=== PATIENT | male | born 1955 | race Caucasian/White ===

== ENCOUNTER 2024-03-05 09:03 | Outpatient (CLI) | payer MEDICARE | END 2024-03-05 09:04 | disposition home or self-care (01) | LOC: CT 09:03 | PROVIDERS: ATTEND Urology | DX: N28.9 Disorder of kidney and ureter, unspecified (principal) | CPT/HCPCS: 74176 ==

== ENCOUNTER 2024-10-29 08:08 | Outpatient (CLI) | payer OTHER | END 2024-10-29 08:09 | disposition home or self-care (01) | LOC: CT 08:08 | PROVIDERS: ATTEND Urology | DX: C61 Malignant neoplasm of prostate (principal); K85.20 Alcohol induced acute pancreatitis without necrosis or infection; R91.1 Solitary pulmonary nodule; J44.9 Chronic obstructive pulmonary disease, unspecified; K57.30 Diverticulosis of large intestine without perforation or abscess without bleeding; I25.10 Atherosclerotic heart disease of native coronary artery without angina pectoris | CPT/HCPCS: 71250; 74176 ==

== ENCOUNTER 2024-12-09 10:22 | Outpatient (CLI) | payer OTHER ==
[2024-12-09 11:57] LABS: #Basophils Less than 0.03 10x3/uL (0.0-0.2); #Eosinophils 0.53 10x3/uL (0.0-0.7); #Monocytes 0.51 10x3/uL (0.11-0.59); #Neutrophils 3.65 10x3/uL (1.40-6.50); %Basophils 0.3 % (0.0-1.0); %Eosinophils 8.5 % (0.0-10.0); %Lymphocytes 24.4 % (21.0-51.0); %Monocytes 8.2 % (0.0-10.0); %Neutrophils 58.4 % (42.0-75.0); Hematocrit 29.8 % (42.0-52.0); Hemoglobin 9.6 g/dL (14.0-18.0); Mean Corpuscular Hemoglobin 29.9 pg (27.0-31.0); Mean Corpuscular Volume 92.8 fL (78.0-98.0); Platelet Count 213 10x3/uL (130-400); Red Blood Cell (RBC) Count 3.21 mill/uL (4.70-6.10); White Blood Cell (WBC) Count 6.24 10x3/uL (4.8-10.8)
[2024-12-09 12:01] LABS: Bacteria/HPF None Seen HPF (None Seen); Glucose, Urine (Dipstick) Normal (Negative); Leukocyte Negative Leu/uL (Negative); Protein, Urine (Dipstick) Negative (Neg-Trace); RBC/HPF 0-3 HPF (0-3); Specific Gravity, Urine 1.009 (1.002-1.036); WBC/HPF 0-3 HPF (0-3)
[2024-12-09 12:15] LABS: ALT (SGPT) 8 U/L (Less than 45); AST (SGOT) 13 U/L (11-34); Albumin 3.6 g/dL (3.1-4.5); Alkaline Phosphatase 81 U/L (40-110); Anion Gap 12 mmol/L (10-20); BUN (Urea Nitrogen) 34 mg/dL (8.4-25.7); Bilirubin, Total 0.3 mg/dL (0.3-1.2); Calc. Creatinine Clearance 0 mL/min (70-130); Calcium 8.6 mg/dL (7.8-10.44); Carbon Dioxide 23 mmol/L (23-31); Chloride 107 mmol/L (98-107); Globulin 2.7 g/dL (2.4-3.5); Glucose 107 mg/dL (80-115); Potassium 5.0 mmol/L (3.5-5.1); Sodium 137 mmol/L (136-145)
[2024-12-09 12:21] LABS: INR-International Normal Ratio 1.2; PTT 33.6 sec (22.9-36.1); Prothrombin Time 15.0 sec (12.0-14.7)
== END 2024-12-09 10:23 | disposition home or self-care (01) ==
LOC: LABBT 10:22
PROVIDERS: ATTEND Urology
DX: Z01.818 Encounter for other preprocedural examination (principal); C61 Malignant neoplasm of prostate
CPT/HCPCS: 71046; 80053; 81001; 85025; 85610; 85730; 86850; 86900; 86901; 87086; 93005; 93010

== ENCOUNTER 2024-12-22 06:00 | Inpatient (IN) | payer OTHER ==
[2024-12-22] MEDS ORDERED: Bupivacaine 0.25% HCL 30 ML VIAL ONE ×2 (06:46→10:13)
[2024-12-22] MEDS ORDERED: MINERAL OIL/WHITE PETROLATUM 3.5 GM TUBE ONE (06:54)
[2024-12-22] MEDS ORDERED: Rocuronium Bromide 10 MG/ML (10ML VIAL) ONE ×2 (06:54→09:55)
[2024-12-22] MEDS ORDERED: Ketamine In 0.9 % NaCl 50 MG/5 ML SYRINGE ONE (06:54)
[2024-12-22] MEDS ORDERED: PROPOFOL 20 ML ONE ×2 (06:54→11:27)
[2024-12-22] MEDS ORDERED: Albuterol HFA (OR) 200 PUFF INH ONE ×2 (06:55→07:28)
[2024-12-22] MEDS ORDERED: LevoFLOXacin D5W 500 mg (100 mL) BAG ONE (06:59)
[2024-12-22] MEDS ORDERED: Ondansetron PF 4 MG/2 ML Vial ONE (10:33)
[2024-12-22] MEDS ORDERED: SUGAMMADEX SODIUM 200 MG/2 ML VIAL ONE (10:33)
[2024-12-22] MEDS ORDERED: fentaNYL PF 100 MCG/2 ML SYRINGE ONE (11:27)
[2024-12-22] MEDS ORDERED: HYDROmorphone 2 MG/ML VIAL ONE (11:27)
[2024-12-22] MEDS ORDERED: Oxybutynin 5 MG TAB PO PRN (12:46)
[2024-12-22] MEDS ORDERED: Mag-Al 1200 mg/1200 mg/30 ML UDCUP PO PRN (12:46)
[2024-12-22] MEDS ORDERED: hydrALAZINE 20 MG/ML VIAL SLOW IVP PRN (12:46)
[2024-12-22] MEDS ORDERED: diphenhydrAMINE 50 MG/ML VIAL IVP PRN (12:46)
[2024-12-22] MEDS ORDERED: Acetaminophen 500 MG TAB PO PRN (12:46)
[2024-12-22] MEDS ORDERED: Ondansetron PF 4 MG/2 ML Vial IVP PRN (12:51)
[2024-12-22] MEDS ORDERED: Albuterol 200 PUFF (6.7GM INHALER) INH PRN (13:22)
[2024-12-22 13:24] LABS: #Basophils Less than 0.03 10x3/uL (0.0-0.2); #Eosinophils 0.07 10x3/uL (0.0-0.7); #Monocytes 0.23 10x3/uL (0.11-0.59); #Neutrophils 10.26 10x3/uL (1.40-6.50); %Basophils 0.2 % (0.0-1.0); %Eosinophils 0.6 % (0.0-10.0); %Lymphocytes 9.4 % (21.0-51.0); %Monocytes 2.0 % (0.0-10.0); %Neutrophils 87.4 % (42.0-75.0); Hematocrit 27.9 % (42.0-52.0); Hemoglobin 8.8 g/dL (14.0-18.0); Mean Corpuscular Hemoglobin 29.8 pg (27.0-31.0); Mean Corpuscular Volume 94.6 fL (78.0-98.0); Platelet Count 183 10x3/uL (130-400); Red Blood Cell (RBC) Count 2.95 mill/uL (4.70-6.10); White Blood Cell (WBC) Count 11.73 10x3/uL (4.8-10.8)
[2024-12-22 13:36] LABS: Anion Gap 11 mmol/L (10-20); BUN (Urea Nitrogen) 36 mg/dL (8.4-25.7); Calc. Creatinine Clearance 30 mL/min (70-130); Calcium 8.1 mg/dL (7.8-10.44); Carbon Dioxide 19 mmol/L (23-31); Chloride 112 mmol/L (98-107); Glucose 161 mg/dL (80-115); Potassium 5.3 mmol/L (3.5-5.1); Sodium 137 mmol/L (136-145)
[2024-12-22] MEDS ORDERED: Albuterol 200 PUFF INH INH PRN (15:18)
[2024-12-22] MEDS ORDERED: Mometasone 200 MCG/Formoterol 5 MCG 120 PUFF INHALER INH SCH (18:30)
[2024-12-22] MEDS: Mometasone 200 MCG/Formoterol 5 MCG 120 PUFF INHALER INH SCH (19:45)
[2024-12-22] MEDS: Famotidine/PF 20 mg/2ml Vial SLOW IVP SCH (20:33)
[2024-12-22] MEDS: Losartan 25 MG TAB PO SCH (20:33)
[2024-12-22] MEDS ORDERED: Rosuvastatin 5 MG TAB PO SCH (21:00)
[2024-12-22] MEDS ORDERED: Losartan 25 MG TAB PO SCH (21:00)
[2024-12-23] MEDS: HYDROcodone/Acetaminophen 7.5/325 mg Tablet PO PRN ×2 (04:06→12:44)
[2024-12-23] MEDS: cefTRIAXone\\ROCEPHIN 1 GM in Sodium Chloride 0.9% 100 ML IVPB SCH (04:07)
[2024-12-23 05:37] LABS: #Basophils Less than 0.03 10x3/uL (0.0-0.2); #Eosinophils Less than 0.03 10x3/uL (0.0-0.7); #Monocytes 1.07 10x3/uL (0.11-0.59); #Neutrophils 9.42 10x3/uL (1.40-6.50); %Basophils 0.1 % (0.0-1.0); %Eosinophils 0.0 % (0.0-10.0); %Lymphocytes 8.5 % (21.0-51.0); %Monocytes 9.3 % (0.0-10.0); %Neutrophils 81.6 % (42.0-75.0); Hematocrit 26.8 % (42.0-52.0); Hemoglobin 8.4 g/dL (14.0-18.0); Mean Corpuscular Hemoglobin 29.5 pg (27.0-31.0); Mean Corpuscular Volume 94.0 fL (78.0-98.0); Platelet Count 195 10x3/uL (130-400); Red Blood Cell (RBC) Count 2.85 mill/uL (4.70-6.10); White Blood Cell (WBC) Count 11.54 10x3/uL (4.8-10.8)
[2024-12-23 05:57] LABS: Anion Gap 13 mmol/L (10-20); BUN (Urea Nitrogen) 36 mg/dL (8.4-25.7); Calc. Creatinine Clearance 32 mL/min (70-130); Calcium 7.8 mg/dL (7.8-10.44); Carbon Dioxide 17 mmol/L (23-31); Chloride 111 mmol/L (98-107); Glucose 102 mg/dL (80-115); Potassium 5.8 mmol/L (3.5-5.1); Sodium 135 mmol/L (136-145)
[2024-12-23] MEDS ORDERED: Mometasone 200 MCG/Formoterol 5 MCG 120 PUFF INHALER INH SCH (07:00)
[2024-12-23] MEDS: Albuterol 1.25 MG (3 mL) NEB NEB SCH (08:29)
[2024-12-23] MEDS: Rosuvastatin 5 MG TAB PO SCH (09:08)
[2024-12-23 12:10] LABS: Potassium 5.2 mmol/L (3.5-5.1)
[2024-12-23 14:53] LABS: Anion Gap 14 mmol/L (10-20); BUN (Urea Nitrogen) 33 mg/dL (8.4-25.7); Calc. Creatinine Clearance 30 mL/min (70-130); Calcium 8.0 mg/dL (7.8-10.44); Carbon Dioxide 15 mmol/L (23-31); Chloride 112 mmol/L (98-107); Glucose 109 mg/dL (80-115); Sodium 136 mmol/L (136-145)
[2024-12-23 15:47] LABS: Anion Gap 13 mmol/L (10-20); BUN (Urea Nitrogen) 34 mg/dL (8.4-25.7); Calc. Creatinine Clearance 30 mL/min (70-130); Calcium 7.8 mg/dL (7.8-10.44); Carbon Dioxide 18 mmol/L (23-31); Chloride 113 mmol/L (98-107); Glucose 112 mg/dL (80-115); Potassium 5.1 mmol/L (3.5-5.1); Sodium 139 mmol/L (136-145)
[2024-12-24 06:20] LABS: #Basophils Less than 0.03 10x3/uL (0.0-0.2); #Eosinophils 0.06 10x3/uL (0.0-0.7); #Monocytes 0.72 10x3/uL (0.11-0.59); #Neutrophils 5.10 10x3/uL (1.40-6.50); %Basophils 0.1 % (0.0-1.0); %Eosinophils 0.8 % (0.0-10.0); %Lymphocytes 21.9 % (21.0-51.0); %Monocytes 9.5 % (0.0-10.0); %Neutrophils 67.2 % (42.0-75.0); Hematocrit 26.4 % (42.0-52.0); Hemoglobin 8.1 g/dL (14.0-18.0); Mean Corpuscular Hemoglobin 29.2 pg (27.0-31.0); Mean Corpuscular Volume 95.3 fL (78.0-98.0); Platelet Count 189 10x3/uL (130-400); Red Blood Cell (RBC) Count 2.77 mill/uL (4.70-6.10); White Blood Cell (WBC) Count 7.59 10x3/uL (4.8-10.8)
[2024-12-24 06:37] LABS: Anion Gap 10 mmol/L (10-20); BUN (Urea Nitrogen) 30 mg/dL (8.4-25.7); Calc. Creatinine Clearance 33 mL/min (70-130); Calcium 8.1 mg/dL (7.8-10.44); Carbon Dioxide 17 mmol/L (23-31); Chloride 117 mmol/L (98-107); Glucose 88 mg/dL (80-115); Potassium 5.0 mmol/L (3.5-5.1); Sodium 139 mmol/L (136-145)
[2024-12-25 05:46] LABS: #Basophils Less than 0.03 10x3/uL (0.0-0.2); #Eosinophils 0.30 10x3/uL (0.0-0.7); #Monocytes 0.80 10x3/uL (0.11-0.59); #Neutrophils 4.74 10x3/uL (1.40-6.50); %Basophils 0.1 % (0.0-1.0); %Eosinophils 4.1 % (0.0-10.0); %Lymphocytes 19.9 % (21.0-51.0); %Monocytes 10.9 % (0.0-10.0); %Neutrophils 64.7 % (42.0-75.0); Hematocrit 27.9 % (42.0-52.0); Hemoglobin 8.8 g/dL (14.0-18.0); Mean Corpuscular Hemoglobin 29.5 pg (27.0-31.0); Mean Corpuscular Volume 93.6 fL (78.0-98.0); Platelet Count 174 10x3/uL (130-400); Red Blood Cell (RBC) Count 2.98 mill/uL (4.70-6.10); White Blood Cell (WBC) Count 7.33 10x3/uL (4.8-10.8)
[2024-12-25 06:01] LABS: Anion Gap 10 mmol/L (10-20); BUN (Urea Nitrogen) 34 mg/dL (8.4-25.7); Calc. Creatinine Clearance 32 mL/min (70-130); Calcium 8.5 mg/dL (7.8-10.44); Carbon Dioxide 19 mmol/L (23-31); Chloride 114 mmol/L (98-107); Glucose 88 mg/dL (80-115); Potassium 4.9 mmol/L (3.5-5.1); Sodium 138 mmol/L (136-145)
[2024-12-25 11:37] VITALS: TEMP 97.9
[2024-12-25 16:25] VITALS: BP 142/66
== END 2024-12-25 17:22 | disposition home or self-care (01) | DRG 707 ==
LOC: SDC 06:00 → SURG A 14:59
PROVIDERS: ADMIT Urology; ATTEND Urology
PROC: 0VT04ZZ Resection of Prostate, Percutaneous Endoscopic Approach (ICD-10-PCS; principal; 2024-12-22)
PROC: 0VB34ZZ Excision of Bilateral Seminal Vesicles, Percutaneous Endoscopic Approach (ICD-10-PCS; 2024-12-22)
PROC: 8E0W4CZ Robotic Assisted Procedure of Trunk Region, Percutaneous Endoscopic Approach (ICD-10-PCS; 2024-12-22)
PROC: 0VBQ4ZZ Excision of Bilateral Vas Deferens, Percutaneous Endoscopic Approach (ICD-10-PCS; 2024-12-22)
PROC: 3E03329 Introduction of Other Anti-infective into Peripheral Vein, Percutaneous Approach (ICD-10-PCS; 2024-12-22)
DX: C61 Malignant neoplasm of prostate (principal); N18.4 Chronic kidney disease, stage 4 (severe); R97.20 Elevated prostate specific antigen [PSA]; R35.0 Frequency of micturition; E78.5 Hyperlipidemia, unspecified; E87.5 Hyperkalemia; J44.9 Chronic obstructive pulmonary disease, unspecified; I12.9 Hypertensive chronic kidney disease with stage 1 through stage 4 chronic kidney disease, or unspecified chronic kidney disease; G40.909 Epilepsy, unspecified, not intractable, without status epilepticus; K66.0 Peritoneal adhesions (postprocedural) (postinfection); F17.210 Nicotine dependence, cigarettes, uncomplicated; F10.10 Alcohol abuse, uncomplicated; Z88.8 Allergy status to other drugs, medicaments and biological substances; Z98.890 Other specified postprocedural states
CPT/HCPCS: 36415; 80048; 82570; 85025; 86850; 86900; 86901; 93005; 93010; 94640; 94664; A4314; A4333; C1713; C1751; C1776; C1889; C9250-JZ; J0169; J0665; J0694; J0696; J1100; J1171; J1956; J2250; J2704; J3010; J3490; J7030; S2900